=== PATIENT | female | born 1965 | race American Indian/Alaskan Native ===

== ENCOUNTER 2017-10-01 12:29 | Emergency (ER) | payer SELFPAY ==
[2017-10-01 12:47] VITALS: BP 126/83; PULSE 88; RESP 18; TEMP 98.1; O2SAT 96
--- NOTE | 2017-10-01 13:14 | C.PDOC ---
History Of Present Illness 52 y/o female, with history of anxiety, presents to the ER for a refill of Xanax. Patient reports that she uses Xanax 1 to 2 times a day. Patient states that her boyfriend and his friend used her Xanax so she does not have any Xanax left. Of note, patient has a history of benzo withdrawal seizures. Time Seen by Provider: 10/01/17 12:59 Chief Complaint (Nursing): Med Refill History Per: Patient History/Exam Limitations: no limitations Past Medical History Reviewed: Historical Data, Nursing Documentation, Vital Signs Vital Signs: Last Vital Signs Temp 98.1 F 10/01/17 12:47 Pulse 88 10/01/17 12:47 Resp 18 10/01/17 12:47 BP 126/83 10/01/17 12:47 Pulse Ox 96 10/01/17 13:22 - Medical History PMH: Anxiety, Depression, Seizures Denies: Chronic Kidney Disease Surgical History: No Surg Hx - [facility] Procedures DETOXIFICATION SERVICES FOR SUBSTANCE ABUSE TREATMENT (10/05/15) GROUP ERP ENGINEER FOR SUBSTANCE ABUSE TREATMENT, PSYCHOEDUCATION (10/05/15) Family History: States: No Known Family Hx - Social History Hx Tobacco Use: Yes Hx Alcohol Use: No Hx Substance Use: Yes (heroin) - Immunization History Hx Tetanus Toxoid Vaccination: No Hx Influenza Vaccination: No Hx Pneumococcal Vaccination: No Review Of Systems Except As Marked, All Systems Reviewed And Found Negative. Physical Exam - Physical Exam Appears: No Acute Distress, Other (anxiety, tearful, tremulous) Head: Atraumatic, Normacephalic Eye(s): bilateral: Normal Inspection, PERRL Nose: Normal Oral Mucosa: Moist Neck: Supple Chest: Symmetrical Cardiovascular: Rhythm Regular Respiratory: Normal Breath Sounds, No Accessory Muscle Use Extremity: Normal ROM Neurological/Psych: Oriented x3, No Normal Speech (pressured speech), Normal Cognition, Cerebellar Signs, Normal Motor ED Course And Treatment O2 Sat by Pulse Oximetry: 96 (RA) Pulse Ox Interpretation: Normal Medical Decision Making Medical Decision Making: chronic anxiety meds and ran out taking 1-2 tabs of Xanax 2 mg daily but and friends may be taking some. suspect diversion will refill to bridge to Psych visit with Dr. Lockett for refills in 3 days. Disposition Doctor Will See Patient In The: Office Counseled Patient/Family Regarding: Studies Performed, Diagnosis - Disposition Referrals: [facility] [Outside] [facility] [Outside] [facility] [Outside] Disposition: HOME/ ROUTINE Disposition Time: 13:22 Condition: GOOD Additional Instructions: follow-up with Dr. Bailey on Tuesday, as scheduled, for your normal med refills Prescriptions: Alprazolam [Xanax] 2 mg PO BID #6 tablet Instructions: Anxiety (ED) Forms: [employer] (Mongolian) - Clinical Impression Clinical Impression: Anxiety, Benzodiazepine dependence - Scribe Statement The provider has reviewed the documentation as recorded by the Dinora Rosas Provider Attestation: All medical record entries made by the Nehaibe were at my direction and personally dictated by me. I have reviewed the chart and agree that the record accurately reflects my personal performance of the history, physical exam, medical decision making, and the department course for this patient. I have also personally directed, reviewed, and agree with the discharge instructions and disposition.
== END 2017-10-01 13:30 | disposition home or self-care (01) ==
LOC: C.ER 12:29
DX: F41.9 Anxiety disorder, unspecified (principal); F13.20 Sedative, hypnotic or anxiolytic dependence, uncomplicated

== ENCOUNTER 2017-12-21 12:16 | Emergency (ER) | payer SELFPAY ==
[2017-12-21 12:49] VITALS: BP 118/87; PULSE 92; RESP 20; TEMP 98.1; O2SAT 99
--- NOTE | 2017-12-21 13:11 | C.PDOC ---
History Of Present Illness 52 year old female with PMhx of anxiety presents to the ED requesting Xanax medication refill. Patient reports she not able to see her prescribing physician because her did not pay the medical bill, patient reports the bill should be payed soon and will go to see her PMD on Tuesday. Patient denies SI/HI, hallucinations, CP, SOB. Time Seen by Provider: 12/21/17 12:57 Chief Complaint (Nursing): Psychiatric Evaluation History Per: Patient History/Exam Limitations: no limitations Onset/Duration Of Symptoms: Days Current Symptoms Are (Timing): Still Present Suicide/Self Injury Attempted (Context): None Modifying Factor(s): None Severity: None Associated Symptoms: Anxiety. denies: Depression, Suicidal Thoughts, Suicidal Plan Involuntary Hold By: None Additional History Per: Patient Past Medical History Reviewed: Historical Data, Nursing Documentation, Vital Signs Vital Signs: Last Vital Signs Temp 98.1 F 12/21/17 12:46 Pulse 92 H 12/21/17 12:46 Resp 20 12/21/17 13:15 BP 118/87 12/21/17 12:46 Pulse Ox 99 12/21/17 13:12 - Medical History PMH: Anxiety, Depression, Seizures Denies: Chronic Kidney Disease Surgical History: No Surg Hx - [facility] Procedures DETOXIFICATION SERVICES FOR SUBSTANCE ABUSE TREATMENT (10/05/15) GROUP [address] VENDOR FOR SUBSTANCE ABUSE TREATMENT, PSYCHOEDUCATION (10/05/15) Family History: States: Unknown Family Hx - Social History Hx Tobacco Use: Yes Hx Alcohol Use: No Hx Substance Use: Yes (heroin) - Immunization History Hx Tetanus Toxoid Vaccination: No Hx Influenza Vaccination: No Hx Pneumococcal Vaccination: No Review Of Systems Constitutional: Negative for: Fever, Chills Cardiovascular: Negative for: Chest Pain Respiratory: Negative for: Shortness of Breath Gastrointestinal: Negative for: Abdominal Pain Skin: Negative for: Rash Psych: Positive for: Anxiety. Negative for: Depression, Suicidal ideation Physical Exam - Physical Exam Appears: Non-toxic, No Acute Distress Skin: Normal Color, Warm, Dry Head: Atraumatic, Normacephalic Eye(s): bilateral: Normal Inspection Nose: No Discharge Oral Mucosa: Moist Neck: Normal ROM, Supple Chest: Symmetrical Cardiovascular: Rhythm Regular, No Murmur Respiratory: Normal Breath Sounds, No Rales, No Rhonchi, No Wheezing Gastrointestinal/Abdominal: Soft, No Tenderness, No Guarding, No Rebound Extremity: Normal ROM, No Tenderness, No Swelling Neurological/Psych: Oriented x3 Gait: Steady ED Course And Treatment O2 Sat by Pulse Oximetry: 99 (On RA) Pulse Ox Interpretation: Normal Medical Decision Making Medical Decision Making: Assessment: Anxiety, med refill SALES MANAGEMENT TRAINEE aware showed patient received 90 tabs of Xanax. Patient was unable to get more medications because she received her monthly supply and she is only 20 days in. Patient was informed she will need to see her PMD to get more prescriptions, patient states understanding. Patient is not actively in withdrawal. Disposition Counseled Patient/Family Regarding: Diagnosis, Need For Followup - Disposition Disposition: HOME/ ROUTINE Disposition Time: 13:11 Condition: STABLE Additional Instructions: follow up with your doctor or medical clinic in 2 days call to make an appointment take medications as prescribed return to hospital if symptoms worsens or progress Instructions: Panic Disorder Forms: [facility] (Serbian), General Discharge Instructions - Clinical Impression Clinical Impression: No mechanism for timely refill of medication - Scribe Statement The provider has reviewed the documentation as recorded by the Scribe Jayme Lennon All medical record entries made by the Scribe were at my direction and personally dictated by me. I have reviewed the chart and agree that the record accurately reflects my personal performance of the history, physical exam, medical decision making, and the department course for this patient. I have also personally directed, reviewed, and agree with the discharge instructions and disposition.
== END 2017-12-21 13:14 | disposition home or self-care (01) ==
LOC: C.ER 12:16
DX: Z76.0 Encounter for issue of repeat prescription (principal); F41.9 Anxiety disorder, unspecified

== ENCOUNTER 2017-12-30 12:19 | Emergency (ER) | payer MEDICAID, OTHER ==
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
[2017-12-30 14:32] VITALS: BP 117/81; PULSE 86; RESP 18; TEMP 97.8
[2017-12-30 14:38] VITALS: O2SAT 97
== END 2017-12-30 14:31 | disposition home or self-care (01) ==
LOC: C.ER 12:19
DX: F41.9 Anxiety disorder, unspecified (principal)